=== PATIENT | female | born 1950 | race Caucasian/White ===

== ENCOUNTER 2016-05-27 | Emergency (ER) | payer MEDICARE, OTHER ==
[2016-05-27] MEDS ORDERED: ONDANSETRON HCL 4 MG/2 ML VIAL ONE (00:30)
[2016-05-27] MEDS ORDERED: HYDROmorphone HCL 1 MG/ML SYR ONE (00:44)
[2016-05-27 00:56] LABS: ALBUMIN 4.1 g/dL (3.5-5.0); ALKALINE PHOSPHATASE 69 U/L (38-126); ALT 34 U/L (9-52); AST 19 U/L (14-36); BILIRUBIN, DIRECT 0.2 mg/dL (0.0-0.4); BILIRUBIN, TOTAL 0.4 mg/dL (0.2-1.3); BLOOD UREA NITROGEN 17 mg/dL (7-17); CALCIUM 9.4 mg/dL (8.4-10.2); CHLORIDE 102 mmol/L (98-107); CREATININE 0.7 mg/dL (0.5-1.0); EST GLOMERULAR FILTRATION RATE > 60 mL/min; GLUCOSE 138 mg/dL (70-100); LIPASE 539 U/L (23-300); POTASSIUM 3.8 mmol/L (3.5-5.1); SODIUM 139 mmol/L (137-145); TOTAL PROTEIN 7.4 g/dL (6.3-8.2)
[2016-05-27 01:00] LABS: BASOPHIL# 0.1 X 10^3uL (0.0-0.1); BASOPHILS 0.9 % (0.0-2.0); EOSINOPHILS 4.9 % (0.0-6.0); EOSINOPHILS# 0.4 X 10^3uL (0.0-0.4); HEMATOCRIT 42.8 % (36.0-48.0); HEMOGLOBIN 14.1 g/dL (12.0-16.0); LYMPHOCYTES 21.8 % (20.0-40.0); LYMPHOCYTES# 1.7 X 10^3uL (0.8-3.8); MEAN CELL VOLUME 83.3 fL (80.0-100.0); MEAN CORPUSCULAR HEMOGLOBIN 27.5 pg (29.0-35.0); MEAN PLATELET VOLUME 7.9 fL (7.4-10.4); MONOCYTES# 0.7 X 10^3uL (0.2-1.0); NEUTROPHILS 63.4 % (54.0-75.0); PLATELET COUNT 328 X 10^3uL (130-440); RED BLOOD COUNT 5.14 X 10^6uL (4.20-6.10); RED CELL DISTRIBUTION WIDTH 13.9 % (11.5-14.5); WHITE BLOOD COUNT 7.9 X 10^3uL (3.9-10.7)
--- NOTE | 2016-05-27 03:06 | CT REPORT ---
INDICATION: Abdominal pain, concern for pancreatitis, status post cholecystectomy 6 weeks ago. COMPARISON: None. TECHNIQUE: Helical axial images were obtained through the abdomen and pelvis after intravenous admini stration of 100 cc of Omnipaque 300. Enteric contrast was also administered. Coronal and sagittal rec onstructions were created. This examination was performed using automated exposure control, adjustmen t of mA or kV according to patient size, and/or use of iterative reconstruction technique. FINDINGS: The lung bases are clear. The liver is unremarkable. There are cholecystectomy clips in the gallbladd er fossa. There is no gross biliary ductal dilatation. There is no pancreatic mass or ductal dilatati on. There is subtle fat stranding surrounding the head of the pancreas. There is a moderate size hiat al hernia. The spleen is unremarkable. There is no abnormally dilated small bowel or colon. There are multiple colonic diverticula but there is no focus of acute diverticulitis. The appendix is not defi nitely identified but there are no secondary findings of acute appendicitis. There are multiple small renal sinus cysts bilaterally. There is no hydronephrosis. The kidneys enhan ce symmetrically. No solid renal mass is seen. The urinary bladder is unremarkable. The abdominal aor ta and IVC are normal size. The uterus is present. There is no gross lymphadenopathy. There is no zonia e air or free fluid. There is moderate degenerative disc disease in the thoracolumbar spine, worst at L2-3 and L3-4. IMPRESSION: 1. Mild fat stranding surrounds the head of the pancreas raising possibility of acute pancreatitis. C linical correlation with laboratory values is needed. There is no biliary ductal dilatation or pancre atic ductal dilatation. No focal pancreatic mass is identified. 2. Moderate size hiatal hernia. 3. Bilateral renal sinus cysts. 4. Colonic diverticulosis. Final Electronic Signature: This report was electronically signed by Abad Gibson MD on 05/27/2016 3: 03 AM. [email or web address] /
[2016-05-27] MEDS ORDERED: ONDANSETRON ODT PREPAC 4 MG TAB.RAPDIS PO ONE (03:17)
[2016-05-27] MEDS ORDERED: HYDROcodone/APAP PREPAC 5/325 1 TAB TABLET PO ONE (03:17)
--- NOTE | 2016-05-27 03:23 | ER PHYSICIAN DOCUMENTATION ---
Physician Documentation [facility] Name:Naty Soni Age:66 yrs Sex:Female :1950 Arrival Date:05/27/2016 Time:00:00 [facility] Private MD:Ryann Fuentes ED, [place] Disposition: 05/27/16 02:50 Discharged to Home/Self Care. Impression: Pancreatitis, Acute. - Condition is Good. - Discharge Instructions: Acute Pancreatitis - Lipase. - Prescriptions for Zofran 4 mg Oral Tablet - take 1 tablet by ORAL route every 12 hours .; 20 tablet. Hydrocodone- Acetaminophen 5-325 mg Oral Tablet - take 1 tablet by ORAL route every 6 hours As needed; 20 tablet. - Medical Reconciliation form form. - Follow up: Ryann Fuentes DO; When: 2 - 3 days; Reason: Recheck today's complaints, Continuance of care. - Problem is new. - Symptoms have improved. HPI: 05/27 02:41 This 66 yrs old Female presents to ER via Walk In with complaints of Back sc Pain, Abdominal Pain. 02:41 This 66 yrs old Female presents to ER via Walk In with complaints of Back sc Pain, Abdominal Pain. 02:41 The patient presents with abdominal pain in the upper abdomen. Onset: The sc symptoms/episode began/occurred 3 day(s) ago. The symptoms radiate to back. Associated signs and symptoms: none. The symptoms are described as burning. Modifying factors: The symptoms are alleviated by nothing. Severity of pain: At its worst the pain was moderate in the emergency department the pain has improved. This patient does not have any risk factors related to abdominal pain. 6 weeks s/p lap sumi. Historical: - Allergies: No known drug Allergies; - Home Meds: 1. Lisinopril Oral 2. Prilosec Oral - PMHx: Hypertension; - PSHx: Appendectomy; Cholecysectomy; Tonsillectomy; - Tetanus: > 10 years. - Ebola Screening: : Patient negative for fever greater than or equal to 101.5 degrees Fahrenheit, and additional compatible Ebola Virus Disease symptoms. Patient denies exposure to infectious person. Patient denies travel to an Ebola-affected area in the 21 days before illness onset. No symptoms or risks identified at this time. . - Immunization history: Flu Vaccine None. - Social history: Smoking status: Patient states was never smoker of tobacco. Patient uses alcohol but reports only rare drinking. ROS: 02:43 Constitutional: Negative for fever, chills, and weight loss. sc Eyes: Negative for injury, pain, redness, and discharge. ENT: Negative for injury, pain, and discharge. Neck: Negative for injury, pain, and swelling. Cardiovascular: Negative for chest pain, palpitations, and edema. Respiratory: Negative for shortness of breath, cough, wheezing, and pleuritic chest pain. MS/Extremity: Negative for injury and deformity. Skin: Negative for injury, rash, and discoloration. 02:43 Neuro: Negative for headache, weakness, numbness, tingling, and seizure. sc 02:43 Abdomen/GI: Positive for abdominal pain, Negative for vomiting, diarrhea, constipation, hematemesis, black/tarry stool. 02:43 Back: Positive for radiated pain. Exam: Constitutional: This is a well developed, well nourished patient who is awake, alert, and in no acute distress. Head/Face: Normocephalic, atraumatic. Eyes: Pupils equal round and reactive to light, extra-ocular motions intact. Lids and lashes normal. Conjunctiva and sclera are non-icteric and not injected. Cornea within normal limits. Periorbital areas with no swelling, redness, or edema. ENT: Nares patent. No nasal discharge, no septal abnormalities noted. Tympanic membranes are normal and external auditory canals are clear. Oropharynx with no redness, swelling, or masses, exudates, or evidence of obstruction, uvula midline. Mucous membranes moist. Neck: Trachea midline, no thyromegaly or masses palpated, and no cervical lymphadenopathy. Supple, full range of motion without nuchal rigidity, or vertebral point tenderness. No meningismus. Chest/axilla: Normal chest wall appearance and motion. Nontender with no deformity. No lesions are appreciated. Cardiovascular: Regular rate and rhythm with a normal S1 and S2. No gallops, murmurs, or rubs. Normal PMI, no JVD. No pulse deficits. Respiratory: Lungs have equal breath sounds bilaterally, clear to auscultation and percussion. No rales, rhonchi or wheezes noted. No increased work of breathing, no retractions or nasal flaring. Skin: Warm, dry with normal turgor. Normal color with no rashes, no lesions, and no evidence of cellulitis. 02:47 Neuro: Awake and alert, GCS 15, oriented to person, place, time, and situation. ak Cranial nerves II-XII grossly intact. Motor strength 5/5 in all extremities. Sensory grossly intact. Cerebellar exam normal. Normal gait. 02:47 Abdomen/GI: Inspection: abdomen appears normal, scar(s), are noted in the abdomen diffusely, Bowel sounds: normal, Palpation: mild abdominal tenderness, in the right upper quadrant and left upper quadrant. Vital Signs: 00:44 BP 178 / 86; Pulse 74; Resp 18; Temp 97.6; Pulse Ox 92% on R/A; Weight 92.99 kg; Height lb 5 ft. 4 in. (162.56 cm); Pain 9/10; 01:43 BP 129 / 63; Pulse 80; Resp 15; Pulse Ox 95% ; Pain 0/10; lb 03:21 BP 132 / 75; Pulse 88; Resp 14; Pulse Ox 94% ; Pain 0/10; lb 00:44 Body Mass Index 35.19 (92.99 kg, 162.56 cm) lb MDM: 00:47 Patient medically screened. ak 02:48 Differential diagnosis: cholecystitis, diverticulitis, gastritis, pancreatitis. Data ak reviewed: vital signs, nurses notes, lab test result(s), radiologic studies, and as a result, I will discharge patient. Counseling: I had a detailed discussion with the patient and/or guardian regarding: the historical points, exam findings, and any diagnostic results supporting the discharge/admit diagnosis, lab results, radiology results, the need for outpatient follow up, for a referral to a specialist. Medication response: The patient's symptoms have improved. 05/27 00:59 Order name: BASIC METABOLIC PANEL; Complete Time: 01:07 EDNV 05/27 01:06 Interpretation: Normal. ak 05/27 00:59 Order name: HEPATIC PANEL; Complete Time: 01:07 EDMS 05/27 01:06 Interpretation: Normal. ak 05/27 00:59 Order name: LIPASE; Complete Time: 01:07 EDNV 05/27 01:07 Interpretation: Abnormal: LIPASE 539. ak 05/27 01:01 Order name: CBC AUTO DIF, MDIF/RMOR IF IND; Complete Time: 01:07 EDMS 05/27 01:07 Interpretation: Normal. ak 05/27 03:07 Order name: CAT SCAN; ABD/PEL W [id number] EDMS 05/27 00:17 Order name: NPO; Complete Time: 00:31 lb Dispensed Medications: Completed: NS 0.9% 1000 ml IV at bolus once 00:30 Drug: NS 0.9% 1000 ml; Route: IV; Rate: bolus; Site: left antecubital; lb 03:20 Follow up: IV Status: Completed infusion; IV Intake: 1000ml lb 00:31 Drug: Zofran 4 mg; Route: IVP; Infused Over: 2 mins; Site: left antecubital; lb 01:16 Follow up: Response: Nausea is decreased lb 00:41 Drug: Dilaudid 1 mg; Route: IVP; Site: left antecubital; lb 01:16 Follow up: Response: Pain is decreased lb 03:11 Drug: HYDROcodone-acetaminophen (5mg/325 mg) 1-2 tabs 1 tabs; Route: PO; lb 03:20 Follow up: Response: Pharmacy closed - take home med pack lb 03:11 Drug: Zofran 1 tablet; Route: PO; lb 03:20 Follow up: Response: Pharmacy closed - take home med pack lb Point of Care Testing: Urine Dip: 01:14 pH: 7.0; ; Specific [place]: 1.025; Ketones: Negative; Glucose: Negative; Protein: lb Trace; Leukocytes: Negative; Nitrite: Negative ; Blood: Non Hemolyzed Trace; Bilirubin: Negative ; Urobilinogen: Normal Signatures: Reji Romero MD MD ak Emma Collier
--- NOTE | 2016-05-27 03:23 | ER NURSING DOCUMENTATION ---
Nurse's Notes [facility] Name:Naty Soni Age:66 yrs Sex:Female :1950 Arrival Date:05/27/2016 Time:00:00 [facility] Private MD:Ryann Fuentes Diagnosis:Pancreatitis, Acute Presentation: 05/27 00:04 Acuity: LANIE 3 lb 00:04 Notified ED Physician of Dr. Romero notified. lb 00:41 Presenting complaint: Patient states: ruq and mid back pain for 3 days s/p lb cholecystectomy 6 weeks ago. c/o mild nausea. Transition of care: Home. 00:41 Method Of Arrival: Walk In lb Triage Assessment: 00:44 General: Appears uncomfortable, Behavior is cooperative, pleasant. Pain: Complains of lb pain in diaphragm Pain radiates to right mid back Pain currently is 9 out of 10 on a pain scale. Musculoskeletal: Circulation, motion, and sensation intact Capillary refill < 3 seconds Range of motion intact in all extremities. Historical: - Allergies: No known drug Allergies; - Home Meds: 1. Lisinopril Oral 2. Prilosec Oral - PMHx: Hypertension; - PSHx: Appendectomy; Cholecysectomy; Tonsillectomy; - Tetanus: > 10 years. - Ebola Screening: : Patient negative for fever greater than or equal to 101.5 degrees Fahrenheit, and additional compatible Ebola Virus Disease symptoms. Patient denies exposure to infectious person. Patient denies travel to an Ebola-affected area in the 21 days before illness onset. No symptoms or risks identified at this time. . - Immunization history: Flu Vaccine None. - Social history: Smoking status: Patient states was never smoker of tobacco. Patient uses alcohol but reports only rare drinking. Screenin:46 Infectious Disease Risk None. Abuse screen: Denies threats or abuse. Denies injuries lb from another. Nutritional screening: No deficits noted. Assessment: 00:45 See Triage Assessment done by same RN. Neuro: No deficits noted. lb 00:47 GI: Abdomen is obese, Bowel sounds present X 4 quads. Abd is soft Reports nausea. lb Vital Signs: 00:44 BP 178 / 86; Pulse 74; Resp 18; Temp 97.6; Pulse Ox 92% on R/A; Weight 92.99 kg; Height lb 5 ft. 4 in. (162.56 cm); Pain 9/10; 01:43 BP 129 / 63; Pulse 80; Resp 15; Pulse Ox 95% ; Pain 0/10; lb 03:21 BP 132 / 75; Pulse 88; Resp 14; Pulse Ox 94% ; Pain 0/10; lb 00:44 Body Mass Index 35.19 (92.99 kg, 162.56 cm) lb ED Course: 00:04 Patient arrived in ED. ma1 00:04 Ryann Fuentes DO is Private Physician. ma1 00:04 Emma Collier is Primary Nurse. lb 00:04 Triage completed. lb 00:18 Reji Romero MD is Attending Physician. sc 00:46 Inserted peripheral IV: 20 gauge in left antecubital area and blood collected. lb 00:46 Valuables Remains with patient Patient has correct armband on for positive lb identification. Placed in gown. Bed in low position. Call light in reach. Side rails up X 1. 02:[address] pm1 02:50 Ryann Fuentes DO is Referral Physician. sc 03:21 Discontinued lock intact, bleeding controlled. lb Administered Medications: Completed: NS 0.9% 1000 ml IV at bolus once 00:30 Drug: NS 0.9% 1000 ml; Route: IV; Rate: bolus; Site: left antecubital; lb 03:20 Follow up: IV Status: Completed infusion; IV Intake: 1000ml lb 00:31 Drug: Zofran 4 mg; Route: IVP; Infused Over: 2 mins; Site: left antecubital; lb 01:16 Follow up: Response: Nausea is decreased lb 00:41 Drug: Dilaudid 1 mg; Route: IVP; Site: left antecubital; lb 01:16 Follow up: Response: Pain is decreased lb 03:11 Drug: HYDROcodone-acetaminophen (5mg/325 mg) 1-2 tabs 1 tabs; Route: PO; lb 03:20 Follow up: Response: Pharmacy closed - take home med pack lb 03:11 Drug: Zofran 1 tablet; Route: PO; lb 03:20 Follow up: Response: Pharmacy closed - take home med pack lb Point of Care Testing: Urine Dip: 01:14 pH: 7.0; ; Specific [place]: 1.025; Ketones: Negative; Glucose: Negative; Protein: lb Trace; Leukocytes: Negative; Nitrite: Negative ; Blood: Non Hemolyzed Trace; Bilirubin: Negative ; Urobilinogen: Normal Intake: 03:20 IV: 1000ml; Total: 1000ml. lb 03:21 IV: 1000ml (NS); Total: 2000ml. lb Output: 03:21 Urine: 200ml (Voided); Total: 200ml. lb Outcome: 02:50 Discharge ordered by . sc 03:21 Discharged to home ambulatory. lb 03:21 Condition: good 03:21 Discharge Assessment: Patient awake, alert and oriented x 3. No cognitive and/or functional deficits noted. Patient verbalized understanding of disposition instructions. 03:21 Instructed on discharge instructions, follow up and referral plans. no drinking with medication, no driving heavy equipment. 03:21 IV D/Flip 03:22 Patient left the ED. lb 23:45 Discharge F/U Call: Spoke with: other: Name: Call from MR. Soni states is grisel experiencing increased pain and nausea . Asked if taking RX- meds. Stated only intermittently. Also mentioned she " feels warm " but is afebrile at this time. Instructed to take home Zofran and Percocet. Come to ED if develops fever and non retractable pain and nausea. 05/28 02:31 Discharge F/U Call: Spoke with: other: Name: Mr. Soni called again to ask if she grisel can take some Tylenol for a " headache". Instructed to only take 2- 325 mg for a total of 650 mg because she has already had 1 Percocet that contains 325 mg Tylenol. Denies fever ( took while on phone and was 98.5 F ) and states that nausea has been relieved. Stressed importance of F/U in AM since only 6 weeks post-op. Pain also seems to be in control. Told him she could take another Percocet at 6:00 AM as directed per RX. Signatures: Reji Romero MD MD sc Strickland, Mary ms McBride, Philisha pm1 Radha Harris mk4 Emma Collier, Sweta ma1
[2016-05-30 08:29] LABS: C-REACTIVE PROTEIN 23.7 mg/L (<10.0)
== END 2016-05-27 03:23 | disposition home or self-care (01) ==
LOC: ER
DX: K85.91 Acute pancreatitis with uninfected necrosis, unspecified (principal); Z90.49 Acquired absence of other specified parts of digestive tract; Z98.890 Other specified postprocedural states; I10 Essential (primary) hypertension; Z79.899 Other long term (current) drug therapy
CPT/HCPCS: 74177; 80048; 80076; 83690; 85025; 86140; 96361; 96374; 96375; 99284; 99285; J1170; J2405

== ENCOUNTER 2016-05-29 02:29 | Observation (INO) | payer MEDICARE, OTHER ==
[2016-05-29 02:51] LABS: BASOPHIL# 0.1 X 10^3uL (0.0-0.1); EOSINOPHILS# 0.1 X 10^3uL (0.0-0.4); MEAN PLATELET VOLUME 7.7 fL (7.4-10.4)
[2016-05-29] MEDS ORDERED: FAMOTIDINE IN SALINE, ISO-OSM 50 ML IV ONE (02:52)
[2016-05-29] MEDS ORDERED: ONDANSETRON HCL 4 MG/2 ML VIAL ONE ×2 (02:52→05:11)
[2016-05-29] MEDS ORDERED: HYDROmorphone HCL 1 MG/ML SYR ONE ×2 (02:52→05:10)
[2016-05-29 02:55] LABS: BASOPHILS 1.7 % (0.0-2.0); EOSINOPHILS 1.3 % (0.0-6.0); HEMATOCRIT 40.8 % (36.0-48.0); HEMOGLOBIN 13.8 g/dL (12.0-16.0); LYMPHOCYTES 26.8 % (20.0-40.0); LYMPHOCYTES# 2.1 X 10^3uL (0.8-3.8); MEAN CELL VOLUME 83.5 fL (80.0-100.0); MEAN CORPUS. HGB CONCENTRATION 33.7 g/dL (32.0-36.0); MEAN CORPUSCULAR HEMOGLOBIN 28.1 pg (29.0-35.0); MONOCYTES 8.2 % (2.0-10.0); MONOCYTES# 0.6 X 10^3uL (0.2-1.0); NEUTROPHILS# 4.8 X 10^3uL (2.6-6.7); PLATELET COUNT 358 X 10^3uL (130-440); RED BLOOD COUNT 4.89 X 10^6uL (4.20-6.10); WHITE BLOOD COUNT 7.7 X 10^3uL (3.9-10.7)
[2016-05-29 03:02] LABS: ALBUMIN 4.2 g/dL (3.5-5.0); ALKALINE PHOSPHATASE 74 U/L (38-126); ALT 30 U/L (9-52); AST 21 U/L (14-36); BILIRUBIN, DIRECT 0.2 mg/dL (0.0-0.4); BILIRUBIN, TOTAL 0.6 mg/dL (0.2-1.3); BLOOD UREA NITROGEN 19 mg/dL (7-17); CALCIUM 9.3 mg/dL (8.4-10.2); CHLORIDE 99 mmol/L (98-107); CREATININE 0.8 mg/dL (0.5-1.0); EST GLOMERULAR FILTRATION RATE > 60 mL/min; GLUCOSE 119 mg/dL (70-100); LIPASE 64 U/L (23-300); SODIUM 139 mmol/L (137-145); TOTAL PROTEIN 7.6 g/dL (6.3-8.2)
[2016-05-29 03:14] LABS: TROPONIN I 0.093 ng/mL (0.00-0.034)
[2016-05-29 05:03] LABS: URINE APPEARANCE CLEAR; URINE COLOR AMBER; URINE GLUCOSE NORMAL (NEGATIVE); URINE KETONE 100mg/dL (3+) (NEGATIVE); URINE LEUKOCYTE ESTERASE NEGATIVE (NEGATIVE); URINE NITRITE NEGATIVE (NEGATIVE); URINE PH 5.5 (5-7); URINE PROTEIN 100mg/dL (2+) (NEG - TRACE); URINE SPECIFIC GRAVITY > OR = 1.030 (0.001-1.035); URINE UROBILINOGEN 2mg/dL (NEG-1mg/dL)
[2016-05-29 05:04] LABS: URINE BACTERIA <10 ORGANISMS/hpf (<10/hpf); URINE BILIRUBIN 1.0 mg/100ml (2+) (NEGATIVE); URINE BLOOD TRACE (NEGATIVE); URINE MUCUS UP TO 50%/lpf (Up to 25%); URINE RBC 0-5/hpf (0-5/hpf); URINE SQUAMOUS EPITHELIAL CELL 0-5/hpf (<= 15/hpf); URINE WBC 0-4/hpf (0-4/hpf)
[2016-05-29] MEDS ORDERED: HOME MEDICATION LIST NEEDED 1 EA EACH MISC ONE (05:32)
[2016-05-29] MEDS ORDERED: NORMAL SALINE 1,000 ML IV SCH (06:00)
--- NOTE | 2016-05-29 06:56 | CT REPORT ---
CT ANGIOGRAM OF THE CHEST WITH INTRAVENOUS CONTRAST, PE PROTOCOL COMPARISON: None. INDICATION: [facility], shortness of breath, chest pain TECHNIQUE: Contrast enhanced chest CT performed during the injection of 100 ml of Isovue 370. Three- dimensional (MIP) reconstructions were performed. This examination was performed using automated expo sure control, adjustment of mA or kV according to patient size, and/or use of iterative reconstructio n technique. FINDINGS: Vascular: There is no pulmonary embolism. The aorta main pulmonary arteries are grossly normal. Tubes and lines: No tubes or lines identified. Thyroid: Partially visualized, visualized portions are normal. Mediastinum and thalia: The great vessels and airways are normal. There is no significant mediastinal or hilar lymphadenopathy. Heart and pericardium: The heart is enlarged in size. There is no significant coronary artery atheros clerotic calcification. No pericardial effusion. Chest wall and breasts : The chest fair are unremarkable. There is no significant supraclavicular or axillary lymphadenopathy. Lungs and pleura: No significant worrisome pulmonary nodule or consolidation is noted. No pleural eff usion. There is bibasilar atelectasis/scarring. There is a prominent calcified granuloma in right upp er lobe. Bones: No acute fractures. Visualized upper abdomen: There is a moderate hiatal hernia. There are changes from cholecystectomy. IMPRESSION: 1. No pulmonary embolism. 2. Calcified granuloma in the right upper lobe. 3. Cardiomegaly. 4. Moderate hiatal hernia. COMMUNICATION: Dr. Arabella Ross discussed the pertinent results with Dr. Epps at 05/29/2016 6:53 AM. Final Electronic Signature: This report was electronically signed by Johnathan Ross MD on 05/29/2016 6:54 AM. chanelle /
--- NOTE | 2016-05-29 07:16 | ER NURSING DOCUMENTATION ---
Nurse's Notes [facility] Name:Naty Soni Age:66 yrs Sex:Female :1950 Arrival Date:05/29/2016 Time:02:29 Bed4 Private MD: Diagnosis:Vomiting - Dehydration;Abdominal Pain, Epigastric Presentation: 05/29 02:34 Acuity: LANIE 2 02:53 Presenting complaint: Patient states: Pt was seen in ED Saturday night for RUQ pain rh that radiated to her mid back. Pt was discharged with pancreatitis and was to follow up with [facility]. Pt saw Dr. Rees and Dr. Brunson and is supposed to have an MRCP done in the AM today. However, pt has had increased pain, nausea, vomiting, headache, SOB, dizziness and painful heartburn. Transition of care: Home. 02:53 Method Of Arrival: Walk In Triage Assessment: 02:56 General: Appears in no apparent distress, uncomfortable, Behavior is cooperative. Pain: rh Complains of pain in right upper quadrant. EENT: Oral mucosa is dry. Neuro: Level of Consciousness is awake, alert, obeys commands. Cardiovascular: Capillary refill < 3 seconds Reports lightheadedness. Respiratory: Airway is patent Respiratory effort is even, unlabored, Reports shortness of breath. GI: Abdomen is obese, Abdomen is tender to palpation in epigastric area, right upper quadrant and left upper quadrant Reports epigastric pain, nausea, vomiting. : Denies burning with urination. Derm: Skin is intact, is healthy with good turgor, Skin is pale. Musculoskeletal: Circulation, motion, and sensation intact Range of motion intact in all extremities. Historical: - Allergies: No known drug Allergies; - Home Meds: 1. Lisinopril Oral 2. Prilosec Oral 3. Lexapro Oral - PMHx: HYPERTENSION; Pancreatitis, Acute (May 27, 2016); DEPRESSION; DIABETES - NIDDM; PANCREATITIS; - PSHx: APPENDECTOMY; CHOLECYSECTOMY; TONSILLECTOMY; ; - Tetanus: < 10 years. - Ebola Screening: : Patient negative for fever greater than or equal to 101.5 degrees Fahrenheit, and additional compatible Ebola Virus Disease symptoms. - Immunization history: Flu Vaccine None. - Social history: Smoking status: Patient states was never smoker of tobacco. Screenin:59 Infectious Disease Risk None. Abuse screen: Denies threats or abuse. Denies injuries rh from another. Nutritional screening: No deficits noted. Assessment: 02:59 See Triage Assessment done by same RN. rh Vital Signs: 02:33 BP 179 / 78; Pulse 86; Resp 16; Pulse Ox 86% on R/A; Weight 92.99 kg; Height 5 ft. 3 rh in. (160.02 cm); Pain 8/10; 03:09 BP 140 / 77; Pulse 82; Resp 15; Pulse Ox 91% on 2 lpm NC; Pain 2/10; rh 04:39 BP 145 / 81; Pulse 80; Resp 16; Pulse Ox 91% on 2 lpm NC; rh 06:00 BP 147 / 82; Pulse 75; Resp 16; Pulse Ox 93% on 2 lpm NC; Pain 0/10; rh 06:42 BP 130 / 74; Pulse 82; Resp 15; Pulse Ox 92% on 2 lpm NC; Pain 0/10; rh 07:09 BP 135 / 68; Pulse 73; Pulse Ox 90% ; cb 02:33 Body Mass Index 36.31 (92.99 kg, 160.02 cm) rh Orinda Coma Score: 03:00 Eye Response: spontaneous(4). Verbal Response: oriented(5). Motor Response: obeys cd commands(6). Total: 15. ED Course: 02:30 Patient arrived in ED. ma1 02:34 Zaida Coffey is Primary Nurse. rh 02:34 Triage completed. rh 02:35 Oxygen Oxygen administration via nasal cannula @ 2L/min. rh 02:35 Notified ED Physician of patient's arrival and chief complaint. Dr. Epps notified. rh 02:48 EKG done. (by ED staff). Reviewed by He Epps MD. rh 02:57 Port Xray Completed. ca 02:58 Inserted peripheral IV: saline lock: 20 gauge in left antecubital area and blood mv collected. 03:00 Valuables Remains with patient Patient has correct armband on for positive rh identification. Placed in gown. Bed in low position. Call light in reach. Side rails up X 1. 03:03 He Epps MD is Attending Physician. cd 03:26 EKG attached rh 05:18 Annika Rees MD is Admitting Physician. cd 06:[address] ca 06:[address] moved back from [address]. ca Administered Medications: 02:48 Drug: Dilaudid 1 mg; Route: IVP; Site: left antecubital; mv 03:05 Follow up: Response: Pain is decreased rh 02:50 Drug: Zofran 4 mg; Route: IVP; Infused Over: 2 mins; Site: left antecubital; mv 03:05 Follow up: Response: Nausea is decreased rh 02:56 Drug: Pepcid 20 mg; Route: IVPB; Site: left antecubital; mv 03:20 Follow up: IV Status: Completed infusion; IV Intake: 50ml rh 02:57 Drug: NS 0.9% 1000 ml; Route: IV; Rate: bolus; Site: left antecubital; mv 03:55 Follow up: IV Status: Completed infusion; IV Intake: 1000ml rh 03:56 Drug: NS 0.9% 1000 ml; Route: IV; Rate: bolus; Site: left antecubital; rh 05:00 Follow up: IV Status: Completed infusion; IV Intake: 1000ml rh 05:05 Drug: Zofran 4 mg; Route: IVP; Infused Over: 2 mins; Site: left antecubital; rh 05:44 Follow up: Response: Nausea is decreased rh 05:07 Drug: Dilaudid 1 mg; Route: IVP; Site: left antecubital; rh 05:44 Follow up: Response: Pain is decreased rh Point of Care Testing: Urine Dip: 04:37 pH: 5.5; ; Specific [place]: 1.030; Ketones: Large; Glucose: Negative; Protein: rh Positive (++); Leukocytes: Negative; Nitrite: Negative ; Blood: Hemolyzed Trace; Bilirubin: Moderate (++) ; Urobilinogen: Large Intake: 03:20 IV: 50ml; Total: 50ml. rh 03:55 IV: 1000ml; Total: 1050ml. rh 05:00 IV: 1000ml; Total: 2050ml. rh Outcome: 05:19 Decision to Admit by Provider. cd 07:13 Admitted to Med/surg accompanied by nurse, family with patient, via stretcher, with cb oxygen, with chart. 07:13 Condition: stable 07:13 Report given to WES Farris 07:13 Instructed on need to admit Demonstrated understanding of instructions. 07:15 Patient left the ED. cb Signatures: Odessa Arriaza, He Daniels RN, cb, MD MD cd Arterberry, Zaida Barrientos margaux mv Addison, Melissa ma1
--- NOTE | 2016-05-29 07:16 | ER PHYSICIAN DOCUMENTATION ---
Physician Documentation [facility] Name:Naty Soni Age:66 yrs Sex:Female :1950 Arrival Date:05/29/2016 Time:02:29 Bed4 Private MD: He Galloway Disposition: 05/29/16 05:19 Admit ordered for Annika Rees. Preliminary diagnosis are Vomiting - Dehydration, Abdominal Pain, Epigastric. - Bed requested for Medical/Surgical. - Condition is Fair. - Problem is new. - Symptoms have improved. 23 HR OBS Yes HPI: 05/29 02:35 This 66 yrs old Female presents to ER via Walk In with complaints of cd Abdominal Pain, Nausea and vomiting. 02:35 The patient presents with abdominal pain in the epigastric area, in the right upper cd quadrant. Onset: The symptoms/episode began/occurred acutely, 3 day(s) ago. The symptoms radiate to right back. Associated signs and symptoms: Pertinent positives: anorexia, fever, nausea, shortness of breath, vomiting, Pertinent negatives: blood in stools, chest pain, diarrhea, vomiting blood. Severity of pain: At its worst the pain was moderate in the emergency department the pain has improved moderately. The patient has been recently seen at the [facility] Emergency Department, for similar complaints labs were performed, CT scan was performed, was given IV fluids, was given a prescription for pain medications, was given a prescription for an antiemetic, Patient was seen 3 days ago in the Emergency Department by Dr. Reji Romero. He diagnosed Acute Pancreatitis with a Lipase in the 500's. A CT Scan of the abdomen confirmed this. He discussed the case with Dr. Brunson, General Surgery. Because she had her GB removed in March 2016 and now has Acute Pancreatitis, he wanted her to return today, May 29, for an MRCP. Of note, the patient had a normal Cardiac Catheterization in 2012.. Historical: - Allergies: No known drug Allergies; - Home Meds: 1. Lisinopril Oral 2. Prilosec Oral 3. Lexapro Oral - PMHx: HYPERTENSION; Pancreatitis, Acute (May 27, 2016); DEPRESSION; DIABETES - NIDDM; PANCREATITIS; - PSHx: APPENDECTOMY; CHOLECYSECTOMY; TONSILLECTOMY; ; - Tetanus: < 10 years. - Ebola Screening: : Patient negative for fever greater than or equal to 101.5 degrees Fahrenheit, and additional compatible Ebola Virus Disease symptoms. - Immunization history: Flu Vaccine None. - Social history: Smoking status: Patient states was never smoker of tobacco. ROS: 03:00 Eyes: Negative for injury, pain, redness, discharge, blurry vision and loss of vision. cd ENT: Negative for injury, pain, epistaxis and discharge. Neck: Negative for injury, pain, stiffness and swelling. Cardiovascular: Negative for chest pain, palpitations, edema and pleuritic pain. Respiratory: Negative for shortness of breath, dyspnea on exertion, cough, sputum production, wheezing, hemoptysis and pleuritic chest pain. : Negative for injury, bleeding, discharge, dysuria, frequency, urgency and swelling. MS/Extremity: Negative for injury, deformity, edema, calf tenderness, pain or coldness. Skin: Negative for injury, rash, itching and discoloration. 03:00 Neuro: Negative for headache, weakness, numbness, tingling, and seizure. cd 03:00 Constitutional: Positive for poor PO intake, Negative for body aches, chills, fever. 03:00 Abdomen/GI: Positive for abdominal pain, nausea, vomiting, anorexia, Negative for diarrhea, abdominal distension, hematemesis, black/tarry stool, rectal bleeding. 03:00 All other systems are negative. Exam: Eyes: Pupils equal round and reactive to light, extra-ocular motions intact. Lids and lashes normal. Conjunctiva and sclera are non-icteric and not injected. Cornea within normal limits. Periorbital areas with no swelling, redness, or edema. ENT: Nares patent. No nasal discharge, no septal abnormalities noted. Tympanic membranes are normal and external auditory canals are clear. Oropharynx with no redness, swelling, or masses, exudates, or evidence of obstruction, uvula midline. Mucous membranes dry Neck: Trachea midline, no thyromegaly or masses palpated, and no cervical lymphadenopathy. Supple, full range of motion without nuchal rigidity, or vertebral point tenderness. No Meningismus. Back: No spinal tenderness. No costovertebral tenderness. Full range of motion. Skin: Warm, dry with normal turgor. Normal color with no rashes, no lesions, and no evidence of cellulitis. MS/ Extremity: Pulses equal, no cyanosis. Neurovascular intact. Full, normal range of motion. 03:00 Neuro: Awake and alert, GCS 15, oriented to person, place, time, and situation. cd Cranial nerves II-XII grossly intact. Motor strength 5/5 in all extremities. Sensory grossly intact. Cerebellar exam normal. Normal gait. 03:00 Constitutional: The patient appears alert, awake, non-diaphoretic, non-toxic, well developed, well nourished, obese, pale. 03:00 Cardiovascular: Rate: normal, Rhythm: regular, Pulses: no pulse deficits are appreciated, Heart sounds: normal, Edema: is not appreciated. 03:00 Respiratory: the patient does not display signs of respiratory distress, Respirations: normal, no acute changes, Breath sounds: are normal, clear throughout. 03:00 Abdomen/GI: Inspection: abdomen appears normal, Bowel sounds: diminished, in all quadrants, Palpation: mild abdominal tenderness, in the epigastric area and right upper quadrant, mass, is not appreciated, rebound tenderness, is not appreciated, voluntary guarding, is not appreciated, involuntary guarding, is not appreciated, no appreciated organomegaly, Rectal exam: the exam is deferred, Indicators: McBurney's point is not tender, Pierce's sign is negative. Vital Signs: 02:33 BP 179 / 78; Pulse 86; Resp 16; Pulse Ox 86% on R/A; Weight 92.99 kg; Height 5 ft. 3 rh in. (160.02 cm); Pain 8/10; 03:09 BP 140 / 77; Pulse 82; Resp 15; Pulse Ox 91% on 2 lpm NC; Pain 2/10; rh 04:39 BP 145 / 81; Pulse 80; Resp 16; Pulse Ox 91% on 2 lpm NC; rh 06:00 BP 147 / 82; Pulse 75; Resp 16; Pulse Ox 93% on 2 lpm NC; Pain 0/10; rh 06:42 BP 130 / 74; Pulse 82; Resp 15; Pulse Ox 92% on 2 lpm NC; Pain 0/10; rh 07:09 BP 135 / 68; Pulse 73; Pulse Ox 90% ; cb 02:33 Body Mass Index 36.31 (92.99 kg, 160.02 cm) rh [place] Coma Score: 03:00 Eye Response: spontaneous(4). Verbal Response: oriented(5). Motor Response: obeys cd commands(6). Total: 15. MDM: 02:44 Data interpreted: Pulse oximetry: on room air is 86 %. Interpretation: hypoxia. Plan: cd O2 by NC applied. 02:50 Counseling: I had a detailed discussion with the patient and/or guardian regarding: the cd historical points, exam findings, and any diagnostic results supporting the discharge/admit diagnosis, lab results, radiology results, the need for further work-up and treatment in the hospital. 03:03 Patient medically screened. cd 03:15 Differential diagnosis: acute coronary syndrome, gastritis, gastroesophageal reflux cd disease, Mesenteric ischemia or infarction, myocardia ischemia or infarction, non-specific abd pain, pancreatitis, Peptic Ulcer Disease. 03:20 Data reviewed: vital signs, nurses notes, old medical records, EKG, and as a result, I cd will continue to observe the patient, administer IV fluids, NS bolus, NS maintenence, prescribe pain medication, Dilaudid, and Zofran. 03:26 EKG attached 04:45 Physician consultation: Annika Rees MD was called at 04:30, was contacted at 04:30, cd regarding admission, to telemetry, consult, patient's condition, and will see patient in inpatient room, later today. ED course: The patient's EKG was unchanged from previous EKG's. She has had a normal Cardiac Cath in 2012. Her initial Troponin was mildly elevated at 0.093 . This was repeated after two hours and was found to be the same at 0.093 . Her D-Dimer was positive and in light of her Hypoxia and SOB, a CTA of the chest was performed which was negative for PE. She had a benign RUL calcified nodule and Cardiomegaly. There was no consolidation or CHF or effusions. All of the labs, EKG, CT Scan and CXR were discussed with the patient and her . She will be admitted for OBS, Echocardiogram, Cardiology and General Surgery Consultation and MRCP.. 04:50 Response to treatment: the patient's symptoms have markedly improved after treatment, cd the patient's condition has returned to base line, and as a result, I will admit patient. 05:00 Admission orders: after a detailed discussion of the patient's condition and case, the cd admit orders are written by me. 05:12 ECG:. cd 05/29 02:57 Order name: CBC AUTO DIF, MDIF/RMOR IF IND EDMS 05/29 03:04 Interpretation: Normal. 05/29 03:04 Order name: BASIC METABOLIC PANEL EDMS 05/29 03:04 Interpretation: Normal Except: GLUCOSE 119. 05/29 03:04 Order name: HEPATIC PANEL EDMS 05/29 03:04 Interpretation: Normal. 05/29 03:04 Order name: LIPASE EDMS 05/29 03:05 Interpretation: Normal. 05/29 03:15 Order name: TROPONIN I EDMS 05/29 03:16 Interpretation: Abnormal: TROPONIN I 0.093; Mild elevation. 05/29 03:24 Order name: MAGNESIUM EDMS 05/29 03:30 Interpretation: Normal. 05/29 03:33 Order name: BNP,NT-PRO EDMS 05/29 04:24 Interpretation: Abnormal: BNP,NT-PRO 1951; elevated. 05/29 03:45 Order name: DDIMER EDMS 05/29 04:24 Interpretation: Normal Except: DDIMER 289; Mildly Elevated but less than 10 x patient's cd age. 05/29 05:05 Order name: UA W/ MICRO -CULTURE IF IND; Complete Time: 05:52 EDMS 05/29 05:13 Order name: TROPONIN I; Complete Time: 05:52 EDMS 05/29 08:37 Interpretation: Abnormal: TROPONIN I 0.093; Mildly elevated. 05/29 06:57 Order name: CAT SCAN; CHEST ANGIO [id number]; Complete Time: 08:37 EDMS 05/29 02:44 Order name: EKG - 12 Lead; Complete Time: 02:51 rh 05/29 02:44 Order name: Oxygen; Complete Time: 02:51 rh 05/29 02:44 Order name: NPO; Complete Time: 02:51 rh 05/29 02:51 Order name: Iv Saline Lock; Complete Time: 02:51 rh EC:50 Rate is 83 beats/min. Rhythm is regular. Left axis deviation noted. QRS is negative in cd leads II, III, aVF. RI interval is prolonged. QRS interval is normal. QT interval is normal. Q waves are Present. Q waves are Old in lead III. T waves are Normal. No ST changes noted. Clinical impression: NSR at 83/min, First Degree AV Block, Left Atrial Enlargement, LAFB / LAD, Poor Anterior R-wave Progression Unchanged from Pre-op EKG done on 03/27/2016. Interpreted by me. Dispensed Medications: 02:48 Drug: Dilaudid 1 mg; Route: IVP; Site: left antecubital; mv 03:05 Follow up: Response: Pain is decreased rh 02:50 Drug: Zofran 4 mg; Route: IVP; Infused Over: 2 mins; Site: left antecubital; mv 03:05 Follow up: Response: Nausea is decreased rh 02:56 Drug: Pepcid 20 mg; Route: IVPB; Site: left antecubital; mv 03:20 Follow up: IV Status: Completed infusion; IV Intake: 50ml rh 02:57 Drug: NS 0.9% 1000 ml; Route: IV; Rate: bolus; Site: left antecubital; mv 03:55 Follow up: IV Status: Completed infusion; IV Intake: 1000ml rh 03:56 Drug: NS 0.9% 1000 ml; Route: IV; Rate: bolus; Site: left antecubital; rh 05:00 Follow up: IV Status: Completed infusion; IV Intake: 1000ml rh 05:05 Drug: Zofran 4 mg; Route: IVP; Infused Over: 2 mins; Site: left antecubital; rh 05:44 Follow up: Response: Nausea is decreased rh 05:07 Drug: Dilaudid 1 mg; Route: IVP; Site: left antecubital; rh 05:44 Follow up: Response: Pain is decreased rh Point of Care Testing: Urine Dip: 04:37 pH: 5.5; ; Specific [place]: 1.030; Ketones: Large; Glucose: Negative; Protein: rh Positive (++); Leukocytes: Negative; Nitrite: Negative ; Blood: Hemolyzed Trace; Bilirubin: Moderate (++) ; Urobilinogen: Large Signatures: Odessa Arriaza, RN He Daniels cb, MD MD cd Hofsess, Rachel rh vogel, margaux mv
[2016-05-29] MEDS: ONDANSETRON HCL 4 MG/2 ML VIAL IV PRN ×2 (09:53→16:24)
[2016-05-29] MEDS: HYDROmorphone HCL 1 MG/ML SYR IV PRN ×2 (09:54→16:25)
[2016-05-29] MEDS ORDERED: O2 HUMIDIFIER 650 ML BOTTLE INHALATION ONE (10:00)
--- NOTE | 2016-05-29 11:29 | HISTORY & PHYSICAL ---
DATE OF ADMISSION: 05/29/16 ATTENDING PHYSICIAN: Annika Rees MD PRIMARY CARE PHYSICIAN: Ryann Fuentes MD GENERAL SURGEON: Reji Brunson MD CHIEF COMPLAINT: Abdominal pain. HISTORY OF PRESENT ILLNESS: This is a 66-year-old white female who is status post laparoscopic cholecystectomy 03/28/16 who presented to the Emergency Room on 05/27/16 with abdominal pain. Her lipase was mildly elevated to [address] abdomen showed mild fat stranding possibly consistent with mild pancreatitis. She was treated with IV fluids, Zofran, Dilaudid and Hydrocodone/APAP. She was improved and discharged home on a clear liquid diet. She was then seen in the office yesterday by me with improved right upper quadrant pain but with new onset of nausea and vomiting. She also had some low-grade fevers, chills and sweats overnight. She has not had any appetite and has had a greatly decreased oral intake. Dr. Brunson was consulted and he recommended MRCP which was to be done this morning with follow up appointment with me later in the morning. She came back to the Emergency Room at 02:29 this morning with worsening symptoms or right upper quadrant abdominal pain, nausea and vomiting, headache, shortness of breath, dizziness, and painful gastroesophageal reflux disease symptoms with lots of belching. She had bilious emesis but no hematemesis. She had a bowel movement last night. No blood stools. She describes the pain as right upper quadrant with radiation to the mid epigastrium and left upper quadrant and to the right upper back. She had some chest pain in the Emergency Room which was thought to be related to flatulence which is now resolved. She has a very dry mouth and it is difficult to speak. REVIEW OF SYSTEMS: No visual changes. No cough. She has had a runny nose, which she thinks is related to the oxygen use. No sore throat. No ear pain. She has chronic joint pain. She has a history of fibromyalgia. No dysuria. No hematuria. No diarrhea. PAST MEDICAL HISTORY 1. Gastroesophageal reflux disease with hiatal hernia. 2. Hyperlipidemia. 3. Diabetes mellitus, type 2. 4. Chronic sinusitis. 5. Stress urinary incontinence. 6. Hypertension. 7. Anxiety and depression. 8. Lichen sclerosis of female genitalia. PAST SURGICAL HISTORY 1. Status post laparoscopic cholecystectomy 03/28/16. 2. History of abnormal Pap smear requiring cryotherapy in 1999. Follow up Pap smears have been normal. 3. Cyst removed from ankle 1983. 4. Appendectomy. 5. Tonsillectomy. 6. Caesarean section 1971. DIAGNOSTIC STUDIES: EGD 03/08/16, mild gastroesophageal reflux disease with hiatal hernia. No Barretts. No gastritis. No H. pylori. No celiac disease. Pulmonary function test in 2012 were normal. MEDICATIONS Omeprazole 20 mg daily. Lisinopril/Hydrochlorothiazide 20/12.5 daily. Escitalopram oxalate 10 mg daily. Clobetasol propionate 0.05% ointment 1-2 nights per week. Flonase 2 squirts each nostril daily as needed. Benadryl 25 mg daily as needed. Hydrocodone/Acetaminophen 5/325 mg every 4-6 hours as needed for abdominal pain given in the Emergency Room. Zofran 4 mg every 4-6 hours as needed for nausea and vomiting, also given in the Emergency Room. ALLERGIES: Hydrocodone/Acetaminophen (GI upset). She states that she tolerates other pain medications. SOCIAL HISTORY: She is to [place]. She is a full-time [place] resident and moved here 03/2014. She has 1 son and 2 grandchildren. She has never been a smoker. Rare alcohol use. FAMILY HISTORY: Dad from suicide. Had a history of type 2 diabetes mellitus. Mom also committed suicide. She had a history of depression. Her brother has a history of depression, and he is on Prozac. DATA: Laboratories in the Emergency Room troponin 0.093 x2, approximately 2 hours and 15 minutes apart. Urinalysis with specific gravity is greater than or equal to 0.030 with 2+ protein, 3+ ketones, 2 mg/dL of urobilinogen and 2+ bilirubin. Trace blood. Red blood cells are 0-5 and white blood cells are 0-4. CBC is unremarkable. Basic metabolic panel shows blood sugar 119, BUN 19; otherwise normal. Liver function test normal. Lipase normal 64. D-Dimer 289. BNP 1,950. Laboratories done yesterday show lipase 100, otherwise unremarkable. IMAGING: CT angiogram chest no pulmonary embolism. Calcified granuloma right upper lobe. Cardiomegaly. Moderate hiatal hernia. EKG: From the Emergency Room shows normal sinus rhythm at a rate of 85, left axis deviation, poor R-wave progression. No acute ST-T wave changes. No acute changes as compared to prior EKG. PHYSICAL EXAMINATION VITAL SIGNS: In the emergency room blood pressure 179/78, pulse 86, respiratory rate 16. She is 86% on room air. Temperature is not documented currently. Blood pressure 135/68, pulse 75, respiratory rate 16. She is 92% on 2 liters nasal cannula. GENERAL: This is a mildly ill-appearing female who is in no respiratory distress. She is awake and alert and is responding appropriately to questions. HEENT: Her sclerae are clear. Her TMs are clear. Her nares are clear. Her mucous membranes are dry. Lips are dry. Oropharynx is clear. NECK: Her neck is obese, difficult to assess jugular venous distention. No carotid bruits. LUNGS: Decreased breath sounds at the bases, otherwise clear to auscultation bilaterally. HEART: Distant. Regular rate and rhythm without any murmurs, rubs or gallops. ABDOMEN: Obese, soft with some mild right upper quadrant, mid-epigastric and left upper quadrant pain with palpation. No rebound or guarding. Good bowel sounds. BACK: No unusual step offs, gaps or masses. She has no costovertebral angle tenderness. EXTREMITIES: Warm with no clubbing, cyanosis or edema. Chronic venous stasis changes bilaterally with varicose veins and spider veins. No palpable cords. Negative Homans. Good peripheral pulses. NEUROLOGIC: Alert and oriented x3. Cranial nerves 2-12 are grossly intact without focal deficits. He is awake and alert. Her motor sensation and DTRs are intact. ASSESSMENT This is a 66-year-old white female who is status post laparoscopic cholecystectomy in March who presents with right upper quadrant abdominal pain or uncertain etiology, elevated troponin. PLAN 1. Fluids, electrolytes and nutrition. NPO for MRCP procedure this morning. Electrolytes are stable. Mouth swabs for very dry mouth. Antiemetics as needed. Patient with significant dehydration, continue IV fluids. 2. GI. Patient with mildly elevated lipase upon presentation to the Emergency Room over the weekend. Her lipase is now normalized. However, her abdominal pain and nausea and vomiting have persisted. General surgeon Dr. Reji Brunson has been consulted. MRCP this morning. Unclear etiology of mild pancreatitis. LFTs have remained normal. 3. Cardiovascular. Patient without prior history of coronary artery disease. She has previously been evaluated by Cardiology for history of abnormal EKG with negative workup. She has elevated troponin that did not business change manager 2 hours in the Emergency Room. Cardiology consultation this morning. 4. Respiratory. Patient is a nonsmoker. She presented with mild hypoxemia 86% on room air. CT angiogram was essentially negative. Continue oxygen. 5. Disposition. Patient is admitted to observation. She is a full COR. Anticipate 1-2 day hospital stay. Copies to: Ryann Fuentes MD; Reji Brunson MD MTDD
--- NOTE | 2016-05-29 12:05 | CONSULTATION ---
DATE OF CONSULTATION: 05/29/16 FIRER KILN: Alvaro Escobar MD IDENTIFYING DATA: A 66-year-old female. REASON FOR CONSULTATION: Positive troponin. HISTORY OF PRESENT ILLNESS: This is a very pleasant female with no prior cardiac history. She only has a cardiac risk factor of hypertension. Patient underwent a cholecystectomy. Since that time, she has had significant abdominal pain and believe that it may be related to pancreatitis. Further workup is presently pending. She came in on Saturday, and was discharged from the Emergency Department. She subsequently followed up with her primary care physician earlier this week and saw Dr. Brunson. An MR has been tentatively scheduled to look at bile ducts according to the patient. I do not have those records. Patient again came in earlier this morning with significant abdominal discomfort. It did work its way up into the epigastric region and very low chest area. It has now subsequently resolved. She has had no other symptoms of chest pain and/or shortness of breath. She denies paroxysmal nocturnal dyspnea, orthopnea, nausea, vomiting, diaphoresis and/or palpitations. Today she feels reasonably comfortable, although has some very mild abdominal discomfort. During her workup in the Emergency Department, EKG was obtained. The EKG demonstrated a sinus rhythm with axis deviation. No acute ST-T changes. There was significant motion artifact. A troponin was also obtained that was elevated at 0.093. Second one was obtained and was unchanged. Cardiology consultation was subsequently recommended. A pro-BNP was 1,950. PAST MEDICAL HISTORY, ILLNESSES AND SURGERIES: Hypertension. ALLERGIES: No known drug allergies. MEDICATIONS Lisinopril. Prilosec. Lexapro. SOCIAL HISTORY: Presently denies tobacco. FAMILY HISTORY: Negative for premature cardiovascular disease. REVIEW OF SYSTEMS: Remaining comprehensive review of systems is negative. PHYSICAL EXAMINATION CONSTITUTIONAL: Well-nourished, well-developed in no acute distress. VITAL SIGNS: Blood pressure 135/68 with a pulse of 75 and regular, respiratory rate 16. She is saturating 92% on 2 liters. HEENT: Normocephalic, atraumatic. Ears, eyes, nose and throat are unremarkable with no masses or lesions. NECK: No obvious jugular venous distention. Carotid upstrokes are brisk without bruits. CARDIOVASCULAR: PMI is nondisplaced. Heart is a regular rate with no obvious murmur, gallop or rub. RESPIRATORY: Clear to auscultate bilaterally without wheezes, crackles or rhonchi. ABDOMEN: Mild epigastric discomfort. No peritoneal signs. Negative for hepatosplenomegaly. EXTREMITIES: No clubbing, cyanosis and/or edema. Perfused. NEUROLOGICAL: No gross motor or sensory deficits. PSYCH: Alert and oriented x3. LABORATORY DATA: EKG and troponin as described above. Hemoglobin 13.8, white blood cell count 7.7, platelet count of 358. D-Dimer was elevated at 289 and this was followed up with a CT scan that was negative for pulmonary emboli. Chem -7 demonstrates a BUN and creatinine of 19 and 0.8 respectively. Troponins as described above. Liver enzymes and lipase are normal. ECHOCARDIOGRAM: Normal left ventricular size and systolic function. No significant diastolic dysfunction. Right ventricle was mildly dilated with a mild reduction of systolic performance. Unable to estimate pulmonary pressures. ASSESSMENT 1. Chronic hypertension. 2. Slightly elevated troponin coupled with an abnormal EKG. 3. Admission for abdominal pain, workup is in progress. PLAN: Troponin is not significantly elevated. EKG is fairly unremarkable. It does not appear that her presentation is consistent with acute coronary syndrome such as a ruptured plaque. Most likely a demand event. There was some mild RV compromise, although unable to estimate right ventricular systolic pressures accurately. She does have a history of obesity with higher altitude and may have a component of sleep apnea with underlying pulmonary hypertension. Again, CT scan demonstrated no evidence of pulmonary emboli. At the present time , her presentation is consistent with a strain pattern. It does not meet criteria for a myocardial infarction and I would not recommend further workup at the present time. I would recommend to treat with a baby aspirin and low- dose beta-reinaldo along with a possible statin after lipids are checked. I would also recommend stress testing down the road, although will hold off given her acute abdominal process. It has been a pleasure to participate in the care of this patient. Please do not hesitate to call for further questions. ENOCH
--- NOTE | 2016-05-29 14:04 | RADIOLOGY REPORT ---
A limited single portable view of the chest, without prior films for comparison , demonstrates the cardiac silhouette to be enlarged. The pulmonary vasculature is unremarkable. A 5 mm calcified granuloma is seen in the right mid lung field. No infiltrate, fluid or pneumothorax is seen. IMPRESSION: 1. Enlargement of the cardiac silhouette. 2. Evidence of old granulomatous disease. 3. Please see CT scan report of the same date. MTDD
--- NOTE | 2016-05-29 15:17 | MRI REPORT ---
HISTORY: Abdominal pain, possible CBD stone, nausea and vomiting COMPARISON: None. TECHNIQUE: Multiplanar multiple sequential pre- and postgadolinium MR imaging of the abdomen obtained. MRCP prot ocol was utilized. Thin section T2 imaging performed through the biliary system with reconstructed 3- D and MIP series. 20cc Magnevist contrast. FINDINGS: Liver parenchyma is unremarkable. There is mild periportal edema which extends to the region of the p alfa hepatis and along the margin of the second portion of the duodenum and pancreatic head. Prior ch olecystectomy. No intra or extrahepatic biliary dilatation. No filling defects in the biliary system to suggest stones. Pancreas, spleen, and adrenal glands are unremarkable. Bilateral parapelvic renal cysts. No hydroneph rosis. Moderate-sized hiatal hernia. No adenopathy in the upper abdomen. No abnormal marrow signal. IMPRESSION: Mild edematous changes in the lesly hepatis, periportal distribution, adjacent to the second portion of duodenum, and along the margin of the pancreatic head. Findings may represent mild pancreatitis or potentially postoperative changes related to the relatively recent cholecystectomy. No biliary ductal dilatation. No filling defect identified within the common duct to suggest retained stone. Bilateral parapelvic renal cysts. Final Electronic Signature: This report was electronically signed by Ismael Naranjo MD on 05/29/2016 3:15 PM. soraya /
--- NOTE | 2016-05-29 16:14 | CONSULTATION ---
DATE OF CONSULTATION: 05/29/16 [employer] TESTING: Reji Brunson MD CHIEF COMPLAINT: Nausea, vomiting and epigastric and left upper quadrant pain. HISTORY OF PRESENT ILLNESS: This is a 66-year-old female who underwent laparoscopic cholecystectomy on 03/28/16. Prior to that time, she was having epigastric and right upper quadrant pain. She had been worked up with an EGD which did show some Barretts esophagitis. She was referred by Dr. Lancaster for cholecystectomy. I felt her symptoms were compatible with chronic cholecystitis and she underwent the procedure on 03/28/16. Postoperatively, she improved, but did have intermittent problems with upper abdominal pain. She assumed this was related to the surgery. On last week, she had the onset of back pain which eventually moved around to the epigastric and left upper quadrant region. To a mild degree, she had right upper quadrant pain. She did not have real chest pain or shortness of breath at the time. She was mildly nauseated. This discomfort increased in severity and on Saturday, she was seen in the Emergency Room and underwent a CT scan of the abdomen and pelvis. It was noted that there was perhaps some fat stranding in the head of her pancreas. There was also a mild elevation in her lipase to the 500 levels. She was seen by Dr. Rees in the clinic, and an outpatient MRCP was ordered. This was on 05/28/16. Later that night , she tried to eat and vomited. Her pain increased in intensity, and about 2:00 a.m. she could not take it any longer and was seen in the Emergency Room and admitted to the floor. Since that time, she has been given IV Dilaudid and Zofran which controls her symptoms. Repeat labs did show elevation of troponin and her BNP. Cardiology felt that these were not consistent with cardiac ischemia. She had a CT scan of the chest for a elevated D-Dimer and no evidence of pulmonary embolism was noted. Her labs are fairly normal otherwise with a normal white count and normal liver function test. She continues to have the discomfort and when the Dilaudid does wear off, she has required more injections. She is currently waiting for her MRCP which had to be postponed because of the chest CT. In questioning her, it seems like the cholecystectomy relieved some of her pain as she says the pain is not as noticeable in the right upper quadrant. She says that it is quite similar to the previous pain in the epigastric and left upper quadrant regions. She said she moved her bowels normally last night and really feels no abdominal distention or bloating. . REVIEW OF SYSTEMS GENERAL: She has intermittently felt discomfort since the gallbladder was done in early March. She has had a decent appetite and has not had any weight loss. HEENT: No new complaints. CARDIAC: Denies chest pain. She has hyperlipidemia. She does have hypertension. She did have a cardiac catheterization which was described as normal. PULMONARY: No smoking history of shortness of breath. GI: Significant for the Barretts esophagus and history of chronic cholecystitis. In addition, she has a hiatal hernia with gastroesophageal reflux disease. She does have known diverticulosis. : She has some difficulties with stress incontinence. OUTREACH ASSOCIATE: She has had lichen sclerosis of the female genitalia. She is postmenopausal. NEUROLOGIC: No history of seizure or stroke. ENDOCRINE: She does have diabetes mellitus controlled with diet. PSYCHIATRIC: She has had some problems with anxiety and depression. HEMATOPOIETIC: No history of deep vein thrombosis or anemia. PAST MEDICAL HISTORY 1. Gastroesophageal reflux disease with hiatal hernia and Barretts esophagus. 2. History of right upper quadrant pain treated with laparoscopic cholecystectomy. 3. History of hyperlipidemia. 4. Diabetes mellitus which is diet controlled. 5. Chronic sinusitis. 6. Stress incontinence. 7. Hypertension. 8. Hyperlipidemia. 9. Anxiety and depression. 10. 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 ALLERGIES: She claims Prim; however, she has taken Prim postoperatively and had no difficulties with the exception of GI upset. FAMILY HISTORY: One brother with depression that is treated. Father has diabetes mellitus type 2, but is from suicide. Mother also committed suicide. SOCIAL HISTORY: Nonsmoker. Rarely drinks alcohol. Lives with her in the [facility]. MEDICATIONS Lexapro 10 mg daily. Benadryl PRN. Flonase PRN. Lisinopril 20/12.5 mg 1 p.o. daily. Omeprazole 20 mg daily PRN. Zofran 4 mg PRN. PHYSICAL EXAMINATION VITAL SIGNS: Temperature 36.2, blood pressure 117/62, pulse 73, respiratory rate 16. She is 92% saturated on 2 liters nasal cannula. At this time, she is denying any pain. GENERAL: She appears tired, but is not in acute distress. Her skin appears slightly pale, but there is no jaundice or sclerae icterus noted. ABDOMEN: Shows she is moderately obese and the abdomen is rounded. She has well healed laparoscopy incisions. Bowel sounds were hypoactive. She had no tenderness to palpation in the area where she was having pain. She was describing some discomfort to palpation in the epigastric region, describing it more as a pressure sensation. LABS: As per the chart. CT of the chest showed no pulmonary embolism. CT of the abdomen showed no abnormalities besides possible fat stranding in the region of the head of the pancreas. MRCP is pending. She has undergone an echocardiogram which was felt to be with not acute changes and cardiology consult feels that this is not related to cardiac ischemia. ASSESSMENT: Abdominal pain of unknown etiology. PLAN: Continue supportive care. Will evaluate with an MRCP. She has been scanned on Saturday and last night in the abdomen. I suppose there is some possibility of an ischemic segment of omentum, but I would have thought this would of shown up by this time, and would not have been a long standing problem. It appears that the laparoscopic cholecystectomy did get rid of some of her pain, but not all of the discomfort. We may want her to undergo colonoscopy as that is the only area that has not been evaluated if the MRCP is unremarkable. ENOCH
[2016-05-29] MEDS ORDERED: ESCITALOPRAM OXALATE 10 MG TABLET PO ONE (21:00)
[2016-05-30 03:27] VITALS: PULSE 73; RESP 17
[2016-05-30 06:01] LABS: A/G RATIO 1.1; ALBUMIN 3.4 g/dL (3.5-5.0); ALKALINE PHOSPHATASE 57 U/L (38-126); ALT 34 U/L (9-52); AST 23 U/L (14-36); BILIRUBIN, TOTAL 0.4 mg/dL (0.2-1.3); BLOOD UREA NITROGEN 15 mg/dL (7-17); CALCIUM 8.4 mg/dL (8.4-10.2); CHLORIDE 102 mmol/L (98-107); CREATININE 0.7 mg/dL (0.5-1.0); EST GLOMERULAR FILTRATION RATE > 60 mL/min; GLUCOSE 98 mg/dL (70-100); POTASSIUM 3.8 mmol/L (3.5-5.1); SODIUM 137 mmol/L (137-145); TOTAL PROTEIN 6.4 g/dL (6.3-8.2)
[2016-05-30] MEDS ORDERED: PANTOPRAZOLE 40 MG TABLET PO ONE (06:30)
[2016-05-30 06:45] VITALS: BP 140/76; TEMP 97.3; O2SAT 93
[2016-05-30 06:49] LABS: HEMATOCRIT 37.4 % (36.0-48.0); HEMOGLOBIN 11.7 g/dL (12.0-16.0); RED BLOOD COUNT 4.17 X 10^6uL (4.20-6.10); WHITE BLOOD COUNT 6.1 X 10^3uL (3.9-10.7)
[2016-05-30 06:50] LABS: BAND% (Manual) 4 % (0.0-1.0); BASOPHIL % (Manual) 2 % (0.0-2.0); EOSINOPHIL % (Manual) 2 % (0.0-6.0); LYMPHOCYTE % (Manual) 20 % (20.0-40.0); MEAN CORPUS. HGB CONCENTRATION 31.3 g/dL (32.0-36.0); MEAN CORPUSCULAR HEMOGLOBIN 28.1 pg (29.0-35.0); MONOCYTE % (Manual) 9 % (2.0-10.0); NEUTROPHIL % (Manual) 63 % (54.0-75.0); PLATELET COUNT 214 X 10^3uL (130-440); PLATELET ESTIMATE ADEQUATE
[2016-05-30 08:30] LABS: C-REACTIVE PROTEIN 41.4 mg/L (<10.0)
--- NOTE | 2016-05-30 08:33 | DC SUMMARY: IM Note ---
Discharge Summary: IM/Peds Provider: Date of Admission: 05/29/16 Admitting Provider: ANUSHKA HINSON MD Attending Provider: SILVIA AGUILAR Discharging Provider: ANUSHKA HINSON MD Primary Care Provider: Discharge Date: 05/30/16 Consults: 05/29/16 08:21 pharm [Pharmacy Consult] [CONS] Routine Reason: Medication Reconciliation - Diagnosis (1) Abdominal pain Status: Acute Qualifiers: Abdominal location: generalized Qualified Code(s): R10.84 - Generalized abdominal pain (2) Nausea & vomiting Status: Acute Qualifiers: Vomiting type: bilious vomiting Qualified Code(s): R11.14 - Bilious vomiting (3) Elevated lipase Status: Acute (4) Elevated troponin Status: Acute (5) Proteinuria Status: Acute Qualifiers: Proteinuria type: unspecified Qualified Code(s): R80.9 - Proteinuria , unspecified - Time Spent with Patient Total time spent providing and/or coordinating discharge services: Time with patient DS: Greater than 30 minutes Discharge - Patient/Caregiver Discharge Instructions Activity Level: As tolerated. Encpurage ambulation TID. Diet: Regular diet as toerated. Follow up: SILVIA AGUILAR DO [Primary Care Provider] - 06/05/16 4:00 pm KIRBY MINER MD [MD] - 7 Days Overall discharge status: patient is progressing back to baseline Print Language: [place] Home Medications: HYDROcodone/APAP 5/325 MG [HYDROCODONE/APAP 5mg/325mg*] 1 tab PO Q4H PRN #20 tablet PRN Reason: Pain, Moderate Ondansetron HCl [Zofran] 4 mg PO Q6H #20 tab Disposition: HOME, SELF-CARE Discharge Summary Data - Medication History Medication History: Home Medications Clobetasol Propionate/Emoll [Clobetasol Emollient 0.05% Crm] 1 lesley TOPICAL PRN PRN 05/29/16 Escitalopram Oxalate [Lexapro*] 10 mg PO DAILY 05/29/16 Fluticasone Nasal [Flonase Nasal [place]*] 2 spr NASAL DAILY PRN 05/29/16 Lisinopril/Hydrochlorothiazide [Lisinopril-Hctz 20-12.5 mg Tab] 1 tab PO DAILY 05/29/16 Omeprazole 20 mg PO DAILY 05/29/16 Inpatient Medications 05/29/16 08:47 Ondansetron HCl [Zofran] 4 mg IV Q6H PRN Procedures and tests throughout hospitalization: Completed Lab Orders 05/29/16 10:47 TROPONIN I [CHEM] Urgent 05/30/16 05:20 CBC W/ MANUAL DIFFERENTIAL [HEM] Stat cmp [COMPREHENSIVE METABOLIC PANEL] [CHEM] AMDRAW Completed Imaging Orders 05/29/16 08:50 MRCP W/WO [MRI] Routine Pending Orders 05/29/16 04:45 ANTI NUCLEAR ANTIBODY [SEND] Routine SMOOTH MUSCLE ANTIBODIES [SEND] Routine 05/29/16 08:21 pharm [Pharmacy Consult] [CONS] Routine 05/29/16 08:22 Humidify Oxygen CONTINUOUS 05/29/16 08:47 Ondansetron HCl [Zofran] 4 mg IV Q6H PRN 05/29/16 22:30 URINE PROT ELECTROPH, RAN UR [SEND] 05/29/16 Dinner Regular [DIET] 05/30/16 05:20 ELECTROPHORESIS, PROTEIN [SEND] AMDRAW 05/30/16 08:07 crp arthritis [C-REACTIVE PROTEIN] [CHEM] Stat Labs on day of discharge: Labs from last 24 hours 05/30/16 05/30/16 05/29/16 05:20 05:20 22:30 WBC 6.1 RBC 4.17 L Hgb 11.7 L Hct 37.4 MCV 90.0 D MCH 28.1 L MCHC 31.3 L RDW Not Reportable Plt Count 214 MPV Not Reportable Total Counted 100 Neutrophils % Cancelled Neutrophils % (Manual) 63 Band Neuts % (Manual) 4 H Lymphocytes % Cancelled Lymphocytes % (Manual) 20 Monocytes % (Manual) 9 Eosinophils % Cancelled Eosinophils % (Manual) 2 Basophils % Cancelled Basophils % (Manual) 2 Neutrophils # Cancelled Lymphocytes # Cancelled Monocytes Cancelled Monocytes # Cancelled Eosinophils # Cancelled Basophils # Cancelled Platelet Estimate Adequate Anisocytosis 20-39% of cells Microcytosis 20-39% of cells Sodium 137 Potassium 3.8 Chloride 102 Carbon Dioxide 30 BUN 15 Creatinine 0.7 GFR Calculation > 60 Glucose 98 Calcium 8.4 Total Bilirubin 0.4 AST 23 ALT 34 Alkaline Phosphatase 57 Troponin I Prot Electrophoresis Pending Total Protein 6.4 Albumin 3.4 L Albumin/Globulin Ratio 1.1 U Protein Electrophores Pending 05/29/16 10:47 WBC RBC Hgb Hct MCV MCH MCHC RDW Plt Count MPV Total Counted Neutrophils % Neutrophils % (Manual) Band Neuts % (Manual) Lymphocytes % Lymphocytes % (Manual) Monocytes % (Manual) Eosinophils % Eosinophils % (Manual) Basophils % Basophils % (Manual) Neutrophils # Lymphocytes # Monocytes Monocytes # Eosinophils # Basophils # Platelet Estimate Anisocytosis Microcytosis Sodium Potassium Chloride Carbon Dioxide BUN Creatinine GFR Calculation Glucose Calcium Total Bilirubin AST ALT Alkaline Phosphatase Troponin I 0.053 H Prot Electrophoresis Total Protein Albumin Albumin/Globulin Ratio U Protein Electrophores - Impressions Naty was admitted for persistent migratory abdominal pain with nausea and vomiting. She is status post laparoscopic cholecystectomy on March 28, 2016. She presented to the emergency room with right upper quadrant abdominal pain with radiation to the back and across her abdomen to the mid epigastrium and left upper quadrant 2 days prior to admission. She was then seen in the office the following day. She subsequently developed low-grade fevers, chills, and sweats as well as nausea and vomiting. General surgeon, Dr. Reji Brunson was consulted and the decision was made to order MRCP for the following day. Unfortunately overnight, her symptoms worsened and she went back to the emergency room and was ultimately admitted to the hospital for observation. She was given IV fluids, antiemetics, and IV pain medications. MRCP showed evidence of periportal edema but was otherwise negative. The periportal edema can be consistent with normal postoperative changes or mild pancreatitis. Her diet was advanced and IV fluids were stopped. She did well overnight without further nausea or vomiting. She now has minimal to no abdominal pain. There is no clear etiology of her pain. Her differential diagnosis includes amyloidosis, particular given her constellation of symptoms, and autoimmune hepatitis. We have sent laboratories for evaluation of these processes. She will follow-up with switchman Dr. Kirby Miner as an outpatient. She may need an ERCP. She presented to the emergency room with elevated DDimer. CT angiogram chest showed no evidence of pulmonary embolism. She required oxygen throughout her hospital stay. Upon discharge, she was stable at 91% on room air. Her troponin level was elevated upon admission. Repeat troponin was decreased. She was evaluated by cardiology and elevated troponin was thought to be secondary to cardiac strain and not to any acute coronary event. Her EKG was unchanged from prior EKGs. She has had a negative cardiac catheterization in 2012. Her echocardiogram showed normal ejection fraction with no valvular disease. Right ventricle mildly dilated with mild reduction in systolic performance. Her urinalysis showed proteinuria. As above, we have sent laboratories including urine protein and serum protein electrophoresis for evaluation of abnormal proteins. IM: Discharge Physical Exam - I&O/Vital Signs I&O: Intake & Output 05/29/16 05/30/16 05/30/16 21:59 05:59 13:59 Intake Total 1200 400 Output Total 300 200 Balance 900 200 Weight 96 kg Intake: IV 900 Left Antecubital 900 Oral 300 400 Output: Urine 300 200 Other: Urine Appearance Clear Clear Urine Color Light Laure Yellow Stool Size Moderate Stool Characteristics Soft Liquid Voiding Method Toilet Toilet # Voids 3 # Bowel Movements 1 Vital Signs: Last Vital Signs Temp 36.3 C L 05/30/16 06:45 Pulse 73 05/30/16 06:45 Resp 17 05/30/16 03:00 BP 140/76 05/30/16 06:45 Pulse Ox 93 05/30/16 06:45 Oxygen Flow Rate 2 Oxygen Delivery Method Nasal Cannula - Constitutional General appearance: Present: cooperative, obese. Absent: acute distress - Head Head exam: Present: atraumatic, normocephalic - Eye Eye exam: Present: EOMI, periorbital swelling (Mild), PERRL - ENT ENT exam: Present: mucous membranes moist, normal oropharynx - Neck Neck exam: Present: full ROM - Respiratory Respiratory exam: Present: clear. Absent: accessory muscle use - Cardiovascular Cardiovascular exam: Present: RRR. Absent: gallop, rubs, systolic murmur - GI/Abdominal GI/Abdominal exam: Present: normal bowel sounds, soft. Absent: mass, organomegaly, rebound, tenderness (Remarkably nontender today.) - Extremities Exam Extremities exam: Absent: calf tenderness, Ismael's Sign, edema - Neurological Exam Neurological exam: Present: alert, oriented X3 - Psychiatric Psychiatric exam: Present: normal affect, normal mood - Skin Skin exam: Present: normal color, warm - Allied Health Notes Allied health notes reviewed: nursing
== END 2016-05-30 09:00 | disposition home or self-care (01) ==
LOC: ER 02:29 → IN 07:04
PROVIDERS: ADMIT Family Medicine; ATTEND Family Medicine
DX: K21.9 Gastro-esophageal reflux disease without esophagitis (principal); K44.9 Diaphragmatic hernia without obstruction or gangrene; R10.84 Generalized abdominal pain; R11.14 Bilious vomiting; N39.3 Stress incontinence (female) (male); R74.8 Abnormal levels of other serum enzymes; E78.5 Hyperlipidemia, unspecified; E11.9 Type 2 diabetes mellitus without complications; I10 Essential (primary) hypertension; F41.8 Other specified anxiety disorders; N90.4 Leukoplakia of vulva; Z79.899 Other long term (current) drug therapy
CPT/HCPCS: 36415; 71010; 71275; 74183; 80048; 80053; 80076; 81001; 83690; 83735; 83880; 84155; 84156; 84165; 84166; 84484; 85007; 85025; 85027; 85379; 86039; 86140; 86255; 93005; 93010; 93041; 93306; 96361; 96365; 96375; 96376; 99217; 99219; 99285; E0555; G0378; J1170; J2405; J7030